=== PATIENT | female | born 1995 | race Caucasian/White ===

== ENCOUNTER 2020-03-12 18:18 | Emergency (ER) | payer BC ==
[~2020-03-12] VITALS: Ht 157.5 cm; Wt 61.4 kg
[2020-03-12 18:41] VITALS: TEMP 97.9
[2020-03-12 22:38] VITALS: BP 128/75; PULSE 80
== END 2020-03-12 22:38 | disposition home or self-care (01) ==
LOC: COL.ER 18:18
DX: S61.211A Laceration without foreign body of left index finger without damage to nail, initial encounter (principal); Z23 Encounter for immunization; W26.0XXA Contact with knife, initial encounter; Y92.009 Unspecified place in unspecified non-institutional (private) residence as the place of occurrence of the external cause